=== PATIENT | male | born 1975 | race African-American/Black ===

== ENCOUNTER 2017-09-15 15:37 | Emergency (ER) | payer SELFPAY ==
[~2017-09-15] VITALS: Ht 180.3 cm; Wt 80.0 kg
[2017-09-15 15:56] VITALS: BP 145/100
== END 2017-09-15 18:27 | disposition home or self-care (01) ==
LOC: ER 18:20
DX: Z48.00 Encounter for change or removal of nonsurgical wound dressing (principal); L76.32 Postprocedural hematoma of skin and subcutaneous tissue following other procedure
CPT/HCPCS: 99281

== ENCOUNTER 2017-09-30 15:48 | Emergency (ER) | payer SELFPAY ==
[~2017-09-30] VITALS: Ht 180.3 cm; Wt 80.0 kg
[2017-09-30 16:10] VITALS: BP 151/101
== END 2017-10-01 16:30 | disposition home or self-care (01) ==
LOC: ER 10-01 08:15
DX: Z48.02 Encounter for removal of sutures (principal); R03.0 Elevated blood-pressure reading, without diagnosis of hypertension
CPT/HCPCS: 99281; Z7610

== ENCOUNTER 2024-06-16 10:41 | Emergency (ER) | payer OTHER ==
[~2024-06-16] VITALS: Ht 175.3 cm; Wt 75.0 kg
[2024-06-16 10:49] VITALS: TEMP 37.2; O2SAT 98
[2024-06-16] MEDS ORDERED: FLUORESCEIN SODIUM 1MG/STRIP LEFTEYE NR (12:00)
[2024-06-16] MEDS ORDERED: TETRACAINE 0.5% OPHTH DROPS 4ML LEFTEYE NR (12:00)
[2024-06-16] MEDS ORDERED: CYCL15DR11 LEFTEYE (12:58)
[2024-06-16 13:15] VITALS: BP 145/86; PULSE 90; RESP 19; O2SAT 99
== END 2024-06-16 13:16 | disposition home or self-care (01) ==
LOC: ER 10:41
DX: H57.12 Ocular pain, left eye (principal)
CPT/HCPCS: 70486; 99284